=== PATIENT | male | born 1960 | race Caucasian/White ===

== ENCOUNTER → 2018-05-13 | Outpatient (CLI) | payer BC ==
[2018-05-13 10:55] LABS: ADD MAN DIFF? NO
[2018-05-13 11:10] LABS: BASO # 0.1 x10^3/uL (0.0-0.2); BASO % 1 % (0-3); EOS # 0.1 x10^3/uL (0.0-0.7); EOS % 2 % (0-3); HEMATOCRIT 43.7 % (39.0-53.0); HEMOGLOBIN 14.8 g/dL (13.0-17.5); LYMPH # 1.9 x10^3/uL (1.0-4.8); LYMPH % 23 % (24-48); MEAN CORPUSCULAR HEMOGLOBIN 31 pg (25-35); MEAN CORPUSCULAR HGB CONC 34 g/dL (31-37); MEAN CORPUSCULAR VOLUME 90 fL (79-100); MONO # 0.7 x10^3/uL (0.0-1.1); MONO % 9 % (0-9); NEUT # 5.3 x10^3uL (1.8-7.7); NEUT % 65 % (31-73); PLATELET COUNT 316 x10^3/uL (140-400); RED BLOOD COUNT 4.86 x10^6/uL (4.30-5.70); RED CELL DISTRIBUTION WIDTH 13.6 % (11.5-14.5); WHITE BLOOD COUNT 8.1 x10^3/uL (4.0-11.0)
[2018-05-13 11:11] LABS: BILIRUBIN,URINE NEGATIVE (NEG); CLARITY,URINE CLEAR; COLOR,URINE YELLOW; GLUCOSE,URINE NEGATIVE (NEG); NITRITE,URINE NEGATIVE (NEG); PH,URINE 5.5; PROTEIN,URINE NEGATIVE (NEG-TRACE); UROBILINOGEN,URINE 0.2 mg/dL (0.2 mg/dL)
[2018-05-13 11:13] LABS: ANION GAP 8 (6-14); BLOOD UREA NITROGEN 22 mg/dL (8-26); CALCIUM 9.1 mg/dL (8.5-10.1); CARBON DIOXIDE 26 mmol/L (21-32); CHLORIDE 101 mmol/L (98-107); CREATININE 1.1 mg/dL (0.7-1.3); GFR 69.2; GLUCOSE 136 mg/dL (70-99); INR 1.2 (0.8-1.1); POTASSIUM 4.4 mmol/L (3.5-5.1); PROTHROMBIN TIME PATIENT 14.4 SEC (11.7-14.0); SODIUM 135 mmol/L (136-145)
[2018-05-13 11:14] LABS: PARTIAL THROMBOPLASTIN TIME 31 SEC (24-38)
[2018-05-13 11:28] LABS: HYALINE CASTS, URINE FEW /HPF; SQUAMOUS EPITHELIAL CELL,UR FEW /LPF
[2018-05-13 11:29] LABS: RBC,URINE 0 /HPF (0-2)
[2018-05-13 11:33] LABS: BACTERIA,URINE FEW /HPF (0-FEW)
[2018-05-13 22:16] LABS: MRSA BY PCR Negative (Negative)
== END | disposition home or self-care (01) ==
LOC: LAB 10:34
DX: M12.811 Other specific arthropathies, not elsewhere classified, right shoulder (principal); E55.9 Vitamin D deficiency, unspecified; R79.1 Abnormal coagulation profile
CPT/HCPCS: 36415; 80048; 81001; 82306; 85025; 85610; 85730; 87641

== ENCOUNTER → 2019-04-30 | Outpatient (CLI) | payer BC ==
[2019-04-30 15:28] LABS: BASO # 0.1 x10^3/uL (0.0-0.2); BASO % 1 % (0-3); EOS # 0.1 x10^3/uL (0.0-0.7); EOS % 1 % (0-3); HEMATOCRIT 47.9 % (39.0-53.0); HEMOGLOBIN 15.6 g/dL (13.0-17.5); LYMPH # 1.8 x10^3/uL (1.0-4.8); LYMPH % 19 % (24-48); MEAN CORPUSCULAR HEMOGLOBIN 30 pg (25-35); MEAN CORPUSCULAR HGB CONC 33 g/dL (31-37); MEAN CORPUSCULAR VOLUME 91 fL (79-100); MONO # 0.8 x10^3/uL (0.0-1.1); MONO % 9 % (0-9); NEUT # 6.6 x10^3uL (1.8-7.7); NEUT % 70 % (31-73); PLATELET COUNT 339 x10^3/uL (140-400); RED CELL DISTRIBUTION WIDTH 13.9 % (11.5-14.5); WHITE BLOOD COUNT 9.5 x10^3/uL (4.0-11.0)
[2019-04-30 19:03] LABS: BF COLOR STRAW; BF SOURCE SYNOVIAL
[2019-04-30 19:04] LABS: BF CLARITY TURBID
[2019-04-30 19:06] LABS: BF MON % 10 %; BF PMN % 90 %; BF RBC COUNT 7110 /cmm (Not Established); BF WBC COUNT 24750 /cmm (Not Established)
== END | disposition home or self-care (01) ==
LOC: LAB 14:29
PROVIDERS: ATTEND Orthopaedic Surgery
DX: M25.511 Pain in right shoulder (principal)
CPT/HCPCS: 36415; 85025; 85651; 86140; 87071; 87075; 87102; 87116; 89050; 89060

== ENCOUNTER → 2019-05-04 | Outpatient (CLI) | payer BC ==
[~2019-05-04] MED LIST: GADOTERATE 7.5 MMOL/15ML VIAL. IVP ONE
--- NOTE | 2019-05-04 12:12 | RAD ---
MR of the right shoulder HISTORY: Multiple real shoulder reconstructive surgeries. Worsening pain. Possible infection. TECHNIQUE: Routine pre and postcontrast imaging obtained through the right shoulder. FINDINGS: Acromioclavicular joint is degenerative with undersurface osteophytes. There is evidence of prior rotator cuff repair. There is a full-thickness rupture of the rotator cuff involving the supraspinatus and infraspinatus tendons which are severely retracted to about. Labrum. Moderate to severe muscle atrophy. Partial subscapularis tendon tear. There is fluid in the joint extending into the subdeltoid bursa. This could be sterile or infected content. There are degenerative changes of the glenohumeral joint with chondromalacia. Degenerative tearing of most or all of the labrum. Biceps tendon is not well seen. Marrow edema signal within the lateral humeral head, likely reactive or related to prior surgical intervention. Osteomyelitis considered less likely. One or 2 adjacent soft tissue fluid collections just above the acromioclavicular joint which measures about 5 cm diameter. These may communicate with the acromioclavicular joint which also demonstrates a small amount of fluid. Mild surrounding soft tissue edema. These collections demonstrate a thin enhancing wall. IMPRESSION: 1. Joint and subdeltoid bursal effusions of uncertain sterility. 2. There is a soft tissue fluid collection above the acromioclavicular joint, compatible with abscess versus large synovial cyst. 3. Massive rotator cuff tear. 4. Marrow edema at the lateral humeral head, likely reactive. 5. Primary osteoarthritis. 6. Diffuse degenerative labral tear. 7. Nonvisualized biceps tendon. Electronically signed by: Ruddy Jiménez MD (05/04/2019 12:09 PM) [id number]
== END | disposition home or self-care (01) ==
LOC: MRI 08:20
PROVIDERS: ATTEND Orthopaedic Surgery
DX: S43.491A Other sprain of right shoulder joint, initial encounter (principal); S46.011A Strain of muscle(s) and tendon(s) of the rotator cuff of right shoulder, initial encounter; M19.011 Primary osteoarthritis, right shoulder; M25.411 Effusion, right shoulder; M25.711 Osteophyte, right shoulder; Z98.890 Other specified postprocedural states; X58.XXXA Exposure to other specified factors, initial encounter; Y93.89 Activity, other specified; Y92.89 Other specified places as the place of occurrence of the external cause; Y99.8 Other external cause status
CPT/HCPCS: 73223; A9575